=== PATIENT | female | born 1995 | race Caucasian/White ===

== ENCOUNTER 2018-05-22 13:49 | Emergency (ER) | payer SELFPAY ==
--- NOTE | 2018-05-22 14:01 | EDPHY ---
H & P Stated Complaint: RUQ ABD PAIN N/V Time Seen by Provider: 05/22/18 14:00 HPI/ROS: HPI: This is a 22-year-old female who presents with Chief Complaint: RUQ ABD PAIN N/V Location: Right upper quadrant Quality: Nausea, vomiting Duration: Several days Signs and Symptoms: no fever, + nausea, + vomiting, no hematemesis, no blood in stool, no abdominal bloating, no diarrhea, no back pain, no urinary symptoms, no vaginal bleeding/discharge, no indigestion, no chest pain, no shortness of breath Timing: Acute, intermittent episodes, worse in the morning Severity: [id number] Context: Patient is currently 5 weeks , presents with several day history of nausea and vomiting that is worse in the mornings. She recently moved to the area from [place] and has no OBGYN. She denies any actual suprapubic or pelvic abdominal pain. No vaginal bleeding or discharge. No recent sexual intercourse. Patient reports that she feels full and certain spicy or fried foods make her feel nauseous. She is concerned about her gallbladder. Denies fever, diarrhea. Reports she is not taking vitamins. Unsure of blood type. Last menstrual period was sometime in March. Does not have health insurance. Modifying Factors: None Comment: ROS: A comprehensive 10 system review of systems is otherwise negative aside from elements mentioned in the history of present illness. MEDICAL/SURGICAL/SOCIAL HISTORY: Medical history: Generally healthy. Does not take any regular medications. Surgical history: Appendectomy Social history: Smoker. Family history noncontributory. CONSTITUTIONAL: Extremely well-appearing, young adult white female, significant other at bedside, awake and alert, no obvious distress HEENT: Atraumatic and normocephalic, PERRL, EOMI. Nares patent; no rhinorrhea; no nasal mucosal edema. Tympanic membranes clear. Oropharynx clear, poor dentition, no exudate and moist pink mucosa. Airway patent. No lymphadenopathy. No meningismus. Cardiovascular: Normal S1/S2, tachycardia, regular rhythm, without murmur rub or gallop. PULMONARY/CHEST: Symmetrical and nontender. Clear to auscultation bilaterally. Good air movement. No accessory muscle usage. ABDOMEN: Soft, nondistended, moderate right upper quadrant tenderness, no rebound, no guarding, no peritoneal signs, no masses or organomegaly. No CVAT. Bowel sounds heard x4 quadrants. EXTREMITIES: 2/2 pulses, strength 5/5, no deformities, no clubbing, no cyanosis or edema. NEUROLOGICAL: no focal neuro deficits. GCS 15. SKIN: Warm and dry, no erythema. no rash. Good capillary refill. Source: Patient Exam Limitations: No limitations - Personal History LMP (Females 10-55): Current Tetanus Diphtheria and Acellular Pertussis (TDAP): Yes - Medical/Surgical History Hx Asthma: No Hx Chronic Respiratory Disease: No Hx Diabetes: No Hx Cardiac Disease: No Hx Renal Disease: No Hx Cirrhosis: No Hx Alcoholism: No Hx HIV/AIDS: No Hx Splenectomy or Spleen Trauma: No Other PMH: APPY - Social History Smoking Status: Current every day smoker Constitutional: Initial Vital Signs Temperature (C) 36.6 C 05/22/18 13:54 Heart Rate 116 H 05/22/18 13:54 Respiratory Rate 17 05/22/18 13:54 Blood Pressure 106/69 05/22/18 13:54 O2 Sat (%) 96 05/22/18 13:54 O2 Delivery Mode Room Air Allergies/Adverse Reactions: No Known Allergies Allergy (Unverified 05/22/18 13:54) Home Medications: Medication Instructions Recorded Vits96/Iron Fum/Folic 1 each PO DAILY #30 tablet 05/22/18 [ Tablet] Promethazine HCl [Phenergan 12.5mg 12.5 mg PO Q6 PRN #15 tablet 05/22/18 tab] Medical Decision Making - Diagnostics Imaging Results: Imaging Impressions Abdomen Ultrasound 05/22/18 14:11 Impression: 1. Unremarkable sonographic appearance of the gallbladder. 2. Mild prominence the right renal pelvis. Results called to Ami Bush PA-C, at 3:40 PM. Obstetrics Ultrasound 05/22/18 14:11 Impression: 1. Viable intrauterine gestation at 8 weeks 5 days. 2. 11 cm right ovarian/adnexal cystic mass, most likely hemorrhagic ovarian cyst or endometrioma. Results called to Ami Bush PA-C, at 3:40 PM. ED Course/Re-evaluation: Vital signs reviewed upon arrival in show mild tachycardia with a heart rate of 116. IV access, laboratory studies obtain. Pelvic ultrasound and right upper quadrant ultrasound ordered. Given 1 L normal saline and IV Zofran after discussion regarding cleaned risk of defects. New data argues that Zofran is not the cause of defects. 1525: Labs reviewed. No signs of anemia/platelet dysfunction/MARCOS/elevated LFTs /electrolyte imbalance/pancreatitis. WBC 12 K. 1543: Called by radiologist, Dr. Bradley Lee, who reports that gallbladder ultrasound is unremarkable. Ob ultrasound shows intrauterine with estimated gestational age of 8 weeks 5 days with positive heart tones. There is an 11 cm right adnexal hemorrhagic cyst. Good blood flow to both ovaries and no signs of ovarian torsion. 1550: ED decision to consult OBGYN. Spoke with Dr. Pena who reports that the patient can call the office on Thursday and schedule an appointment next week to be seen. Given prescription for Promethazine and vitamins. This patient was seen under the supervision of my secondary supervising physician. I evaluated care for this patient independently. Discussed this patient with Dr. Collado. Differential Diagnosis: Abdominal pain including but not limited to appendicitis, cholecystitis, gastritis and urinary tract infection. - Data Points Laboratory Results: Laboratory Results 05/22/18 14:05 05/22/18 14:05 05/22/18 05/22/18 05/22/18 14:25 14:05 14:05 WBC 12.30 10^3/uL H 10^3/uL (3.80-9.50) RBC 4.32 10^6/uL 10^6/uL (4.18-5.33) Hgb 12.8 g/dL g/dL (12.6-16.3) Hct 37.9 % L % (38.0-47.0) MCV 87.7 fL fL (81.5-99.8) MCH 29.6 pg pg (27.9-34.1) MCHC 33.8 g/dL g/dL (32.4-36.7) RDW 13.2 % % (11.5-15.2) Plt Count 306 10^3/uL 10^3/uL (150-400) MPV 10.9 fL fL (8.7-11.7) Neut % (Auto) 73.0 % % (39.3-74.2) Lymph % (Auto) 19.3 % % (15.0-45.0) [place] % (Auto) 6.4 % % (4.5-13.0) Eos % (Auto) 0.7 % % (0.6-7.6) Baso % (Auto) 0.4 % % (0.3-1.7) Nucleat RBC Rel Count 0.0 % % (0.0-0.2) Absolute Neuts (auto) 8.98 10^3/uL H 10^3/uL (1.70-6.50) Absolute Lymphs (auto) 2.37 10^3/uL 10^3/uL (1.00-3.00) Absolute Monos (auto) 0.79 10^3/uL 10^3/uL (0.30-0.80) Absolute Eos (auto) 0.08 10^3/uL 10^3/uL (0.03-0.40) Absolute Basos (auto) 0.05 10^3/uL 10^3/uL (0.02-0.10) Absolute Nucleated RBC 0.00 10^3/uL 10^3/uL (0-0.01) Immature Gran % 0.2 % % (0.0-1.1) Immature Gran # 0.03 10^3/uL 10^3/uL (0.00-0.10) Sodium 136 mEq/L mEq/L (135-145) Potassium 3.7 mEq/L mEq/L (3.3-5.0) Chloride 102 mEq/L mEq/L (97-110) Carbon Dioxide 20 mEq/l L mEq/l (22-31) Anion Gap 14 mEq/L mEq/L (6-14) BUN 9 mg/dL mg/dL (7-23) Creatinine 0.5 mg/dL L mg/dL (0.6-1.0) Estimated GFR > 60 Glucose 77 mg/dL mg/dL (70-100) Calcium 9.8 mg/dL mg/dL (8.5-10.4) Total Bilirubin 1.4 mg/dL mg/dL (0.1-1.4) Conjugated Bilirubin 0.3 mg/dL mg/dL (0.0-0.5) Unconjugated Bilirubin 1.1 mg/dL mg/dL (0.0-1.1) AST 27 IU/L IU/L (14-46) ALT 30 IU/L IU/L (9-52) Alkaline Phosphatase 64 IU/L IU/L (38-126) Total Protein 7.5 g/dL g/dL (6.3-8.2) Albumin 4.6 g/dL g/dL (3.5-5.0) Lipase 46 IU/L IU/L (23-300) Beta HCG, Quant 539656.00 mIU/mL H mIU/mL (0.00-4.83) Patient ABO/Rh A NEGATIVE Medications Given: Discontinued Medications Sodium Chloride (Ns) 1,000 mls @ 0 mls/hr IV EDNOW ONE; Wide Open PRN Reason: Protocol Stop: 05/22/18 14:12 Last Admin: 05/22/18 14:26 Dose: 1,000 mls Ondansetron HCl (Zofran) 4 mg IVP EDNOW ONE Stop: 05/22/18 14:12 Last Admin: 05/22/18 14:26 Dose: 4 mg Departure - Departure Disposition: Home, Routine, Self-Care Clinical Impression: First trimester , Hemorrhagic cyst of right ovary Condition: Good Instructions: Nausea and Vomiting in (ED), (ED), Ovarian Cyst (ED), Ruptured Ovarian Cyst (ED) Additional Instructions: Consume a minimum of 8-10 glasses of water or electrolyte fluid replacement drinks that include Gatorade, Powerade, Pedialyte. Eat a bland diet for the next 48 hours and then slowly advance as tolerated. Take promethazine 1 tab every 4 hours as needed for nausea, vomiting. Take vitamins daily. Call OBGYN office on Thursday to schedule a follow-up appointment next week and establish care. Take Tylenol 650 mg every 4 hr as needed for pain. Referrals: [facility],. [Clinic] - As per Instructions Deborah Pena DO [Doctor of Osteopathy] - 2-3 days without fail Prescriptions: Vits96/Iron Fum/Folic [ Tablet] 1 each PO DAILY #30 tablet Promethazine HCl [Phenergan 12.5mg tab] 12.5 mg PO Q6 PRN #15 tablet PRN Reason: Nausea/Vomiting, Use 1st
[2018-05-22] MEDS ORDERED: ONDANSETRON 4 MG/2 ML VIAL IVP ONE (14:11)
[2018-05-22] MEDS ORDERED: NS 1,000 ML IV ONE (14:11)
[2018-05-22 15:12] LABS: PLATELET COUNT 306 10^3/uL (150-400)
[2018-05-22 16:12] VITALS: BP 95/67
== END 2018-05-22 16:13 | disposition home or self-care (01) ==
DX: O99.89 Other specified diseases and conditions complicating pregnancy, childbirth and the puerperium (principal); N83.201 Unspecified ovarian cyst, right side; R11.2 Nausea with vomiting, unspecified; F17.200 Nicotine dependence, unspecified, uncomplicated; Z3A.01 Less than 8 weeks gestation of pregnancy
CPT/HCPCS: 96374; J2405

== ENCOUNTER 2018-05-28 10:26 | Emergency (ER) | payer MEDICAID ==
--- NOTE | 2018-05-28 10:39 | EDPHY ---
H & P Stated Complaint: Vaginal bleeding since this am, ~+7 weeks Time Seen by Provider: 05/28/18 10:38 HPI/ROS: CHIEF COMPLAINT: Vaginal bleeding HISTORY OF PRESENT ILLNESS: The patient presents the ED with acute vaginal bleeding. She is a at approximately 9 weeks. She was seen in the emergency department last week with abdominal discomfort and noted to have a 10 cm ovarian cyst without evidence of torsion. The patient was referred to gynecology but has yet to make that appointment. The patient presents to the ED after she developed vaginal bleeding at work today with lower suprapubic discomfort. The patient is not anticoagulated. She denies any fever, cough or congestion. She denies additional acute complaints. REVIEW OF SYSTEMS: A comprehensive 10 point review of systems is otherwise negative aside from elements mentioned in the history of present illness. Source: Patient Exam Limitations: No limitations - Personal History LMP (Females 10-55): - Medical/Surgical History Hx Asthma: No Hx Chronic Respiratory Disease: No Hx Diabetes: No Hx Cardiac Disease: No Hx Renal Disease: No Hx Cirrhosis: No Hx Alcoholism: No Hx HIV/AIDS: No Hx Splenectomy or Spleen Trauma: No Other PMH: APPY - Social History Smoking Status: Current every day smoker - Physical Exam Exam: General Appearance: Alert, no distress Eyes: Pupils equal and round no pallor or injection ENT, Mouth: Mucous membranes moist Respiratory: There are no retractions, lungs are clear to auscultation Cardiovascular: Regular rate and rhythm Gastrointestinal: Suprapubic fullness, left lower quadrant tenderness Neurological: A&O, normal motor function, normal sensory exam, normal cranial nerves Skin: Warm and dry, no rashes Musculoskeletal: Neck is supple nontender Extremities: symmetrical, full range of motion Psychiatric: Patient is oriented X 3, there is no agitation Constitutional: Initial Vital Signs Temperature (C) 36.7 C 05/28/18 10:34 Heart Rate 112 H 05/28/18 10:34 Respiratory Rate 18 05/28/18 10:34 Blood Pressure 98/72 L 05/28/18 10:34 O2 Sat (%) 97 05/28/18 10:34 O2 Delivery Mode Room Air Allergies/Adverse Reactions: No Known Allergies Allergy (Verified 05/28/18 10:33) Home Medications: Medication Instructions Recorded Vits96/Iron Fum/Folic 1 each PO DAILY #30 tablet 05/22/18 [ Tablet] Promethazine HCl [Phenergan 12.5mg 12.5 mg PO Q6 PRN #15 tablet 05/22/18 tab] Medical Decision Making - Diagnostics Imaging Results: Imaging Impressions Pelvic/Renal Ultrasound 05/28/18 10:40 Impression: 1. Single living intrauterine with gestational age at 10 weeks 2 days , with a heartbeat at 160 beats per minute. 2. Subchorionic hemorrhage in the anterior fundal aspect of the uterus measuring 8.1 x 2.2 x 8.4 cm. 3. Complex ovarian cyst that looks to be originating from the left adnexa, pushing across to the right side. It is clearly identified to be separate from the right ovary today. 4. Corpus luteum is on the right side. Findings and recommendations discussed with Dr. Cristino Carrillo at 1208 hours on May 28, 2018. Final report concurs with initial preliminary interpretation. ED Course/Re-evaluation: I reviewed the results of the patient's prior workup and ultrasound. She was noted to have a 10 cm cyst during her last ED visit. The patient was Rh negative but was not administered RhoGAM. Patient was taken for a repeat pelvic ultrasound which does demonstrate a viable intrauterine at approximately 10 weeks. The patient is noted to have a subchorionic hemorrhage and a persistent 12 cm left ovarian cyst without torsion. The patient did receive RhoGAM in the emergency department. The patient has been advised to continue Tylenol. She will contact the sleep lab technologist she was referred to during her last visit to schedule a follow-up appointment. The patient has been placed on pelvic rest. Given the size of her cyst she was informed to return to the ED immediately for sharp pelvic pain. The patient has a follow-up appointment arranged with OBGYN through our case management. Differential Diagnosis: Differential diagnosis considered includes intra-abdominal hemorrhage, ovarian torsion, spontaneous , subchorionic hemorrhage, pelvic cyst - Data Points Laboratory Results: Laboratory Results 05/28/18 10:45 05/28/18 10:45 05/28/18 05/28/18 05/28/18 11:00 10:45 10:45 WBC RBC Hgb Hct MCV MCH MCHC RDW Plt Count MPV Neut % (Auto) Lymph % (Auto) [place] % (Auto) Eos % (Auto) Baso % (Auto) Nucleat RBC Rel Count Absolute Neuts (auto) Absolute Lymphs (auto) Absolute Monos (auto) Absolute Eos (auto) Absolute Basos (auto) Absolute Nucleated RBC Immature Gran % Immature Gran # Sodium 137 mEq/L mEq/L (135-145) Potassium 3.4 mEq/L mEq/L (3.3-5.0) Chloride 104 mEq/L mEq/L (97-110) Carbon Dioxide 20 mEq/l L mEq/l (22-31) Anion Gap 13 mEq/L mEq/L (6-14) BUN 7 mg/dL mg/dL (7-23) Creatinine 0.5 mg/dL L mg/dL (0.6-1.0) Estimated GFR > 60 Glucose 90 mg/dL mg/dL (70-100) Calcium 9.7 mg/dL mg/dL (8.5-10.4) Beta HCG, Qual POSITIVE Patient ABO/Rh A NEGATIVE Antibody Screen POSITIVE Antibody Identification UNDETERMINED Bld Prod Order Rhogam READY 05/28/18 10:45 WBC 9.90 10^3/uL H 10^3/uL (3.80-9.50) RBC 4.27 10^6/uL 10^6/uL (4.18-5.33) Hgb 12.6 g/dL g/dL (12.6-16.3) Hct 36.8 % L % (38.0-47.0) MCV 86.2 fL fL (81.5-99.8) MCH 29.5 pg pg (27.9-34.1) MCHC 34.2 g/dL g/dL (32.4-36.7) RDW 13.2 % % (11.5-15.2) Plt Count 319 10^3/uL 10^3/uL (150-400) MPV 10.5 fL fL (8.7-11.7) Neut % (Auto) 74.7 % H % (39.3-74.2) Lymph % (Auto) 18.2 % % (15.0-45.0) [place] % (Auto) 6.1 % % (4.5-13.0) Eos % (Auto) 0.4 % L % (0.6-7.6) Baso % (Auto) 0.3 % % (0.3-1.7) Nucleat RBC Rel Count 0.0 % % (0.0-0.2) Absolute Neuts (auto) 7.40 10^3/uL H 10^3/uL (1.70-6.50) Absolute Lymphs (auto) 1.80 10^3/uL 10^3/uL (1.00-3.00) Absolute Monos (auto) 0.60 10^3/uL 10^3/uL (0.30-0.80) Absolute Eos (auto) 0.04 10^3/uL 10^3/uL (0.03-0.40) Absolute Basos (auto) 0.03 10^3/uL 10^3/uL (0.02-0.10) Absolute Nucleated RBC 0.00 10^3/uL 10^3/uL (0-0.01) Immature Gran % 0.3 % % (0.0-1.1) Immature Gran # 0.03 10^3/uL 10^3/uL (0.00-0.10) Sodium Potassium Chloride Carbon Dioxide Anion Gap BUN Creatinine Estimated GFR Glucose Calcium Beta HCG, Qual Patient ABO/Rh Antibody Screen Antibody Identification Bld Prod Order Rhogam Departure - Departure Disposition: Home, Routine, Self-Care Clinical Impression: Ovarian cyst, First trimester bleeding, Subchorionic hemorrhage in first trimester Condition: Good Instructions: Ovarian Cyst (ED), Subchorionic Hemorrhage (ED) Additional Instructions: 1. Avoid heavy lifting. Pelvic rest and no intercourse until cleared to do so by OB. 2. Return to the ED immediately for sharp severe abdominal pain, lightheadedness , heavy bleeding or other concerns. 3. Please follow up with the OBGYN as scheduled by our case management. 4. Tylenol as needed for pain. Referrals: Deborah Pena DO [Doctor of Osteopathy] - As per Instructions
[2018-05-28 11:01] LABS: PLATELET COUNT 319 10^3/uL (150-400)
[2018-05-28 13:42] VITALS: BP 100/64
--- NOTE | 2018-05-28 14:49 | ASMTCMCOM ---
CM Note CM Note Notes: Met with patient regarding follow up with [facility] and have scheduled an appointment for her with Dr. Rae at [facility] for this June 01 at 0830. ER records from today and ER visit on 05/22/18 faxed to Mabel at [facility]. Patient reports that she and her boyfriend have recently relocated to [place] from [place] and are currently staying with her boyfriends brother. They are hoing to find their own apartment soon. Patient encouraged to follow up with [facility] as well. She is currently employeed at [employer] and is now current with [place] Medicaid Date Signed: 05/28/2018 02:48 PM Electronically Signed By:Camilla Esteban RN
== END 2018-05-28 14:04 | disposition home or self-care (01) ==
DX: O20.8 Other hemorrhage in early pregnancy (principal); O26.891 Other specified pregnancy related conditions, first trimester; O36.0110 Maternal care for anti-D [Rh] antibodies, first trimester, not applicable or unspecified; N83.292 Other ovarian cyst, left side; N83.11 Corpus luteum cyst of right ovary; Z3A.10 10 weeks gestation of pregnancy